=== PATIENT | female | born 1930 | race Caucasian/White ===

== ENCOUNTER 2018-10-21 11:02 | Emergency (ER) | payer MEDICARE, BC ==
[2018-10-21 11:22] VITALS: BP 142/82
--- NOTE | 2018-10-21 11:25 | EDM.PDOC ---
ED HPI GENERAL MEDICAL PROBLEM - General Chief Complaint: Syncope Stated Complaint: VIA [facility]TH Time Seen by Provider: 10/21/18 11:13 Source of Information: Reports: Patient, EMS, Old Records, RN History Limitations: Reports: No Limitations - History of Present Illness INITIAL COMMENTS - FREE TEXT/NARRATIVE: 88 yo female presents from her home after a syncopal spell. Has had recurrent episodes of this, EMS mentions this is #4. Vital signs were normal as was her EKG en route. BS was 155 at the scene. She recalls nothing from the episode except that she was sitting on the toilet when she passed out this time. Recalls no pain. Is not sure if she was attempting to pass stool or urine. Doesn't think she's eaten yet today. No black or bloody stools. No vomiting or diarrhea. Lives in an upstairs apartment alone, son and his family live just below her. Son found her slumped over and attempted CPR when he could not palpate a pulse( he is not trained in this area). Denies chest wall pain after her reported CPR per son. Onset: Today Onset Date: 10/21/18 Onset Time: 10:25 Duration: Minutes:, Resolved Prior to Arrival Location: Reports: Generalized Quality: Reports: Other (no pain) Severity: Moderate Improves with: Reports: Other (time) Worsens with: Reports: Other (unknown) Context: Reports: Other (See HPI) Associated Symptoms: Reports: Syncope. 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: Other (see below) (none) - Related Data Allergies Allergy/AdvReac Type Severity Reaction Status Date / Time hydrocodone bitartrate AdvReac Confusion Verified 01/18/16 08:55 [From [place]] Home Meds: Home Meds *Relafen 1 tab PO BID 01/15/16 [History] Zolpidem Tartrate 10 mg PO BEDTIME PRN 01/15/16 [History] buPROPion HCl [Wellbutrin SR] 200 mg PO BID 01/15/16 [History] Acetaminophen [Tylenol] 650 mg PO ASDIRECTED 01/17/16 [History] Mupirocin Oint [Bactroban Oint] 1 applic TOP TID 10/21/18 [History] Rivastigmine [Exelon] 9.5 mg TRDERM DAILY 10/21/18 [History] Past Medical History HEENT History: Reports: Cataract, Impaired Vision, Other (See Below) Other HEENT History: eye pressure problem DIRECTOR [employer] DAT[employer]ASE History: Reports: Musculoskeletal History: Reports: Osteoarthritis Neurological History: Reports: Other (See Below) Other Neuro History: global amnesia, 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 about 2 years ago Psychiatric History: Reports: Depression - Infectious Disease History Infectious Disease History: Reports: Chicken Pox, Shingles - Past Surgical History Musculoskeletal Surgical History: Reports: Knee Replacement, Other (See Below) Social & Family History - Tobacco Use Smoking Status *Q: Never Smoker - Caffeine Use Caffeine Use: Reports: Coffee - Recreational Drug Use Recreational Drug Use: No ED ROS GENERAL - Review of Systems Review Of Systems: See Below Constitutional: Reports: No Symptoms HEENT: Reports: No Symptoms Respiratory: Reports: No Symptoms Cardiovascular: Reports: Syncope Endocrine: Reports: No Symptoms GI/Abdominal: Reports: No Symptoms : Reports: No Symptoms Musculoskeletal: Reports: No Symptoms Skin: Reports: No Symptoms Neurological: Reports: Syncope Psychiatric: Reports: No Symptoms - Physical Exam Exam: See Below Exam Limited By: No Limitations General Appearance: Alert, WD/WN, No Apparent Distress Eye Exam: Bilateral Eye: EOMI, Normal Inspection, PERRL Ears: Normal External Exam, Normal Canal, Hearing Grossly Normal, Normal TMs Nose: Normal Inspection, Normal Mucosa, No Blood Throat/Mouth: Normal Inspection, Normal Lips, Normal Oropharynx, Normal Voice, No Airway Compromise Head Exam: Atraumatic, Normocephalic Neck: Normal Inspection Respiratory/Chest: No Respiratory Distress, Lungs Clear, Normal Breath Sounds, No Accessory Muscle Use Cardiovascular: Regular Rate, Rhythm, No Edema GI/Abdominal: Normal Bowel Sounds, Soft, Non-Tender, No Distention Neuro Exam (Abbreviated): Alert, Oriented, CN II-XII Intact, Normal Cognition, No Motor/Sensory Deficits Back Exam: Normal Inspection. No: CVA Tenderness (R), CVA Tenderness (L) Extremities: Normal Inspection, Normal Range of Motion, Non-Tender, No Pedal Edema Psychiatric: Normal Affect, Normal Mood Skin Exam: Warm, Dry, Intact, Normal Color, No Rash Course - Vital Signs Last Recorded V/S: Last Vital Signs Temp 36.6 C 10/21/18 11:08 Pulse 81 10/21/18 11:08 Resp 16 10/21/18 11:08 BP 142/82 H 10/21/18 11:08 Pulse Ox 98 10/21/18 11:08 Orthostatic Blood Pressure [ 138/78 Standing] Orthostatic Blood Pressure [ 147/73 Sitting] Orthostatic Blood Pressure [ 136/71 Supine] - Orders/Labs/Meds Orders: Active Orders 24 hr Category Date Time Status Cardiac Monitoring [RC] .As Directed Care 10/21/18 11:04 Active Orthostatic Vital Signs [RC] ASDIRECTED Care 10/21/18 11:05 Active Labs: Laboratory Tests 10/21/18 10/21/18 10/21/18 Range/Units 11:15 11:15 12:57 WBC 4.9 (4.5-11.0) K/uL RBC 4.79 (3.30-5.50) M/uL Hgb 14.1 D (12.0-15.0) g/dL Hct 44.4 (36.0-48.0) % MCV 93 (80-98) fL MCH 29 (27-31) pg MCHC 32 (32-36) % Plt Count 303 (150-400) K/uL Sodium 139 L (140-148) mmol/L Potassium 4.7 (3.6-5.2) mmol/L Chloride 102 (100-108) mmol/L Carbon Dioxide 28 (21-32) mmol/L Anion Gap 13.7 (5.0-14.0) mmol/L BUN 14 D (7-18) mg/dL Creatinine 1.3 H D (0.6-1.0) mg/dL Est Cr Clr Drug Dosing 24.57 mL/min Estimated GFR (MDRD) 39 L (>60) Glucose 134 H (74-106) mg/dL Calcium 9.2 D (8.5-10.1) mg/dL Troponin I < 0.017 (0.000-0.056) ng/mL Urine Color Yellow Urine Appearance Cloudy Urine pH 7.0 (4.5-8.0) Ur Specific [place] 1.010 (1.008-1.030) Urine Protein Negative (NEGATIVE) mg/dL Urine Glucose (UA) Normal (NEGATIVE) mg/dL Urine Ketones Negative (NEGATIVE) mg/dL Urine Occult Blood Trace (NEGATIVE) Urine Nitrite Negative (NEGATIVE) Urine Bilirubin Negative (NEGATIVE) Urine Urobilinogen Normal (NORMAL) mg/dL Ur Leukocyte Esterase Negative (NEGATIVE) Urine RBC 0-5 (0-5) Urine WBC Not seen (0-5) Ur Epithelial Cells Not seen Amorphous Sediment Many Urine Bacteria Not seen Urine Mucus Not seen Departure - Departure Time of Disposition: 13:25 Disposition: Home, Self-Care 01 Condition: Fair Clinical Impression: Syncope Qualifiers: Syncope type: unspecified Qualified Code(s): R55 - Syncope and collapse - Discharge Information *PRESCRIPTION DRUG MONITORING PROGRAM REVIEWED*: No *COPY OF PRESCRIPTION DRUG MONITORING REPORT IN PATIENT CHARLIE: No Instructions: Syncope, [id number] Referrals: PCP,None [Primary Care Provider] - Forms: ED Department Discharge Additional Instructions: Wear your Holter monitor for 48 hrs and turn in for testing. F/U with your primary care provider. Continue all your current medications. Return as needed. - My Orders Last 24 Hours: My Active Orders 10/21/18 11:04 Cardiac Monitoring [RC] .As Directed 10/21/18 11:05 Orthostatic Vital Signs [RC] ASDIRECTED - Assessment/Plan Last 24 Hours: My Active Orders 10/21/18 11:04 Cardiac Monitoring [RC] .As Directed 10/21/18 11:05 Orthostatic Vital Signs [RC] ASDIRECTED
[2018-10-21] MEDS ORDERED: Acetaminophen 325 MG Tab PO ONE (13:24)
--- NOTE | 2018-10-21 14:22 | CRLCT ---
INDICATION: Headaches and syncope. TECHNIQUE: CT of the head without contrast. Bone and soft tissue windows. COMPARISON: No prior studies available for comparison at this institution. FINDINGS: No acute intracranial hemorrhage or extra-axial collection. No evidence of acute cortical infarction. No mass effect or midline shift. Moderate generalized cerebral/cerebellar parenchymal volume loss. 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 Moderate regions of decreased attenuation within the periventricular and subcortical white matter of both cerebral hemispheres most likely reflects chronic microvascular ischemic disease and age related change in this patient. Vascular calcifications within the carotid siphons. Orbital contents are normal. Paranasal sinuses are unremarkable. Mastoid air cells are clear. No calvarial fractures. No lytic or sclerotic osseous lesions within the calvarium or skull base. Scalp and other imaged soft tissue structures are normal. IMPRESSION: 1. No acute intracranial abnormality. 2. Results called to Dr. Waters at 2:19 pm. Please note that all CT scans at this facility use dose modulation, iterative reconstruction, and/or weight-based dosing when appropriate to reduce radiation dose to as low as reasonably achievable. Dictated by Michael Patel MD @ Oct 21 2018 2:16PM Signed by Dr. Michael Patel @ Oct 21 2018 2:20PM
== END 2018-10-21 15:25 | disposition home or self-care (01) ==
LOC: JP.ED 11:02
DX: R55 Syncope and collapse (principal); Z88.5 Allergy status to narcotic agent; Z79.899 Other long term (current) drug therapy
CPT/HCPCS: 36415; 70450; 80048; 81001; 84484; 85027; 99284; A9270

== ENCOUNTER 2019-05-01 20:55 | Emergency (ER) | payer MEDICARE, BC ==
--- NOTE | 2019-05-01 21:29 | EDM.PDOC ---
ED HPI GENERAL MEDICAL PROBLEM - General Chief Complaint: Syncope Stated Complaint: MEDICAL VIA [facility] Time Seen by Provider: 05/01/19 21:15 Source of Information: Reports: Patient, EMS, Family, Old Records History Limitations: Reports: No Limitations - History of Present Illness INITIAL COMMENTS - FREE TEXT/NARRATIVE: 89 yo female was eating at a restaurant and had a brief syncopal spell. Does not recall any SOB or chest pain. EMS administered 500 ml of IV fluids en route for low BP. Denies any recent vomiting, diarrhea or black/bloody stools. Is not on any meds for HTN. Feels fine now in the ER. Recently had a Holter for this problem. Has been seen multiple times for this same problem. Onset: Today, Sudden Onset Date: 05/01/19 Onset Time: 20:15 Duration: Minutes:, Other (a couple minutes) Location: Reports: Generalized Quality: Reports: Other (no pain) Severity: Moderate Improves with: Reports: Other (lying down, IV fluids) Worsens with: Reports: Other (vertical posture) Context: Reports: Other (see HPI) Associated Symptoms: Reports: Syncope Treatments ASSEMBLER MOVEMENT: Reports: IV/IO - Related Data Allergies Allergy/AdvReac Type Severity Reaction Status Date / Time hydrocodone bitartrate AdvReac Confusion Verified 01/18/16 08:55 [From [place]] Home Meds: Home Meds *Relafen 1 tab PO BID 01/15/16 [History] Zolpidem Tartrate 10 mg PO BEDTIME PRN 01/15/16 [History] buPROPion HCl [Wellbutrin SR] 200 mg PO BID 01/15/16 [History] Acetaminophen [Tylenol] 650 mg PO ASDIRECTED 01/17/16 [History] Rivastigmine [Exelon] 9.5 mg TRDERM DAILY 10/21/18 [History] Cephalexin [Keflex] 500 mg PO TID #14 capsule 05/01/19 [Rx] Past Medical History HEENT History: Reports: Cataract, Impaired Vision, Other (See Below) Other HEENT History: eye pressure problem Cardiovascular History: Reports: Syncope 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: Musculoskeletal History: Reports: Osteoarthritis Neurological History: Reports: Other (See Below) Other Neuro History: global amnesia, 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 about 2 years ago Psychiatric History: Reports: Depression - Infectious Disease History Infectious Disease History: Reports: Chicken Pox, Shingles - Past Surgical History Musculoskeletal Surgical History: Reports: Knee Replacement, Other (See Below) Other Musculoskeletal Surgeries/Procedures:: bilateral knees and hand reconstruction Social & Family History - Caffeine Use Caffeine Use: Reports: Coffee ED ROS GENERAL - Review of Systems Review Of Systems: See Below Constitutional: Reports: No Symptoms HEENT: Reports: No Symptoms Respiratory: Reports: No Symptoms Cardiovascular: Reports: Syncope Endocrine: Reports: No Symptoms GI/Abdominal: Reports: No Symptoms : Reports: No Symptoms Musculoskeletal: Reports: No Symptoms Skin: Reports: No Symptoms Neurological: Reports: Syncope Psychiatric: Reports: No Symptoms - Physical Exam Exam: See Below Exam Limited By: No Limitations General Appearance: Alert, WD/WN, No Apparent Distress Eye Exam: Right Eye: Proptosis, Bilateral Eye: Normal Inspection, PERRL Ears: Normal External Exam, Normal Canal, Hearing Grossly Normal, Normal TMs Nose: Normal Inspection, No Blood Throat/Mouth: Normal Inspection, Normal Lips, Normal Oropharynx, Normal Voice, No Airway Compromise Head Exam: Atraumatic, Normocephalic Neck: Normal Inspection Respiratory/Chest: No Respiratory Distress, No Accessory Muscle Use, Rhonchi ( diffusely, R > L) Cardiovascular: Regular Rate, Rhythm, No Edema GI/Abdominal: Normal Bowel Sounds, Soft, Non-Tender, No Distention Neuro Exam (Abbreviated): Alert, Oriented, CN II-XII Intact, Normal Cognition, No Motor/Sensory Deficits Back Exam: Normal Inspection Extremities: Normal Inspection, Normal Range of Motion, Non-Tender, No Pedal Edema Psychiatric: Normal Affect, Normal Mood Skin Exam: Warm, Dry, Intact, Normal Color, No Rash Course - Vital Signs Last Recorded V/S: Last Vital Signs Temp 35.8 C 05/01/19 21:22 Pulse 80 05/01/19 21:22 Resp 12 05/01/19 21:22 BP 162/86 H 05/01/19 21:22 Pulse Ox 98 05/01/19 21:22 Orthostatic Blood Pressure [ 143/89 Standing] Orthostatic Blood Pressure [ 153/83 Sitting] Orthostatic Blood Pressure [ 162/86 Supine] - Orders/Labs/Meds Orders: Active Orders 24 hr Category Date Time Status Cardiac Monitoring [RC] .As Directed Care 05/01/19 21:24 Active Orthostatic Vital Signs [RC] ASDIRECTED Care 05/01/19 21:23 Active CULTURE URINE [RM] Stat Lab 05/01/19 22:32 Ordered Labs: Laboratory Tests 05/01/19 05/01/19 05/01/19 Range/Units 21:23 21:45 22:10 WBC 5.0 (4.5-11.0) K/uL RBC 4.30 (3.30-5.50) M/uL Hgb 13.1 (12.0-15.0) g/dL Hct 40.2 (36.0-48.0) % MCV 94 (80-98) fL MCH 31 (27-31) pg MCHC 33 (32-36) % Plt Count 298 (150-400) K/uL Sodium 142 (140-148) mmol/L Potassium 3.9 (3.6-5.2) mmol/L Chloride 104 (100-108) mmol/L Carbon Dioxide 27 (21-32) mmol/L Anion Gap 10.7 (5.0-14.0) mmol/L BUN 19 H (7-18) mg/dL Creatinine 1.2 H (0.6-1.0) mg/dL Est Cr Clr Drug Dosing 24.92 mL/min Estimated GFR (MDRD) 42 L (>60) Glucose 109 H (74-106) mg/dL Calcium 8.4 L (8.5-10.1) mg/dL Troponin I < 0.017 (0.000-0.056) ng/mL Urine Color Yellow (YELLOW) Urine Appearance Slightly cloudy A (CLEAR) Urine pH 7.0 (5.0-8.0) Ur Specific [place] 1.020 (1.008-1.030) Urine Protein Negative (NEGATIVE) mg/dL Urine Glucose (UA) Negative (NEGATIVE) mg/dL Urine Ketones Negative (NEGATIVE) mg/dL Urine Occult Blood Negative (NEGATIVE) Urine Nitrite Negative (NEGATIVE) Urine Bilirubin Negative (NEGATIVE) Urine Urobilinogen 0.2 (0.2-1.0) EU/dL Ur Leukocyte Esterase Moderate H (NEGATIVE) Urine RBC 0-5 (0-5) Urine WBC 20-30 H (0-5) Ur Epithelial Cells Few Amorphous Sediment Few Urine Bacteria Few Urine Mucus Not seen Meds: Medications Discontinued Medications Generic Name Dose Route Start Last Admin Trade Name Freq PRN Reason Stop Dose Admin Cephalexin 500 mg 05/01/19 22:33 Keflex PO 05/01/19 22:34 ONETIME ONE Departure - Departure Time of Disposition: 22:40 Disposition: Home, Self-Care 01 Condition: Fair Clinical Impression: Cystitis Syncope Qualifiers: Syncope type: unspecified Qualified Code(s): R55 - Syncope and collapse - Discharge Information *PRESCRIPTION DRUG MONITORING PROGRAM REVIEWED*: No *COPY OF PRESCRIPTION DRUG MONITORING REPORT IN PATIENT CHARLIE: No Prescriptions: Cephalexin [Keflex] 500 mg PO TID #14 capsule Referrals: Michael Mosley MD [Primary Care Provider] - Forms: ED Department Discharge Additional Instructions: Continue your usual medications. Add cephalexin every 8 hrs for your urinary tract infection. Drink enough water so that your urine is light yellow and never dark yellow. Recheck in the clinic with your doctor on Sunday, return here in the interim as needed. - My Orders Last 24 Hours: My Active Orders 05/01/19 21:23 Orthostatic Vital Signs [RC] ASDIRECTED 05/01/19 21:24 Cardiac Monitoring [RC] .As Directed 05/01/19 22:32 CULTURE URINE [RM] Stat - Assessment/Plan Last 24 Hours: My Active Orders 05/01/19 21:23 Orthostatic Vital Signs [RC] ASDIRECTED 05/01/19 21:24 Cardiac Monitoring [RC] .As Directed 05/01/19 22:32 CULTURE URINE [RM] Stat
[2019-05-01] MEDS ORDERED: Cephalexin 250 MG Cap PO ONE (22:33)
[2019-05-01 22:43] VITALS: BP 126/64; PULSE 74
== END 2019-05-01 22:57 | disposition home or self-care (01) ==
LOC: JP.ED 20:55
DX: R55 Syncope and collapse (principal); N30.90 Cystitis, unspecified without hematuria; F32.9 Major depressive disorder, single episode, unspecified; M19.90 Unspecified osteoarthritis, unspecified site; Z88.5 Allergy status to narcotic agent; Z79.899 Other long term (current) drug therapy
CPT/HCPCS: 36415; 80048; 81001; 84484; 85027; 87086; 87088; 99283; 99284; A9270-GY

== ENCOUNTER 2019-06-26 19:38 | Emergency (ER) | payer MEDICARE, BC ==
--- NOTE | 2019-06-26 20:25 | EDM.PDOC ---
ED HPI GENERAL MEDICAL PROBLEM - General Chief Complaint: Syncope Stated Complaint: MEDICAL Time Seen by Provider: 06/26/19 20:02 Source of Information: Reports: Patient, Family, Old Records, RN Notes Reviewed History Limitations: Reports: No Limitations - History of Present Illness INITIAL COMMENTS - FREE TEXT/NARRATIVE: 89-year-old female presents emergency department today via EMS services for syncopal event at home. She does have history of syncopal events has had an evaluation with a Holter monitor without any diagnosis. Was in the emergency department approximately 2 months prior same event thought to be related to urinary tract infection. 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: IV/IO denies pain Pain Score (Numeric/FACES): 0 - Related Data Allergies Allergy/AdvReac Type Severity Reaction Status Date / Time hydrocodone bitartrate AdvReac Confusion Verified 06/26/19 20:23 [From [place]] Home Meds: Home Meds *Relafen 1 tab PO BID 01/15/16 [History] Zolpidem Tartrate 10 mg PO BEDTIME PRN 01/15/16 [History] buPROPion HCl [Wellbutrin SR] 200 mg PO BID 01/15/16 [History] Acetaminophen [Tylenol] 650 mg PO ASDIRECTED 01/17/16 [History] Rivastigmine [Exelon] 9.5 mg TRDERM DAILY 10/21/18 [History] Past Medical History HEENT History: Reports: Cataract, Impaired Vision, Other (See Below) Other HEENT History: eye pressure problem Cardiovascular History: Reports: Syncope TIRE SPOTTER History: Reports: Musculoskeletal History: Reports: Osteoarthritis Neurological History: Reports: Other (See Below) Other Neuro History: global amnesia, 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 about 2 years ago Psychiatric History: Reports: Depression - Infectious Disease History Infectious Disease History: Reports: Chicken Pox, Shingles - Past Surgical History Musculoskeletal Surgical History: Reports: Knee Replacement, Other (See Below) Other Musculoskeletal Surgeries/Procedures:: bilateral knees and hand reconstruction Social & Family History - Caffeine Use Caffeine Use: Reports: Coffee ED ROS GENERAL - Review of Systems Review Of Systems: See Below Constitutional: Reports: No Symptoms HEENT: Reports: No Symptoms Respiratory: Reports: No Symptoms Cardiovascular: Reports: Syncope GI/Abdominal: Reports: No Symptoms : Reports: No Symptoms ED EXAM, GENERAL - Physical Exam Exam: See Below Exam Limited By: No Limitations General Appearance: Alert, WD/WN, No Apparent Distress Eye Exam: Bilateral Eye: Normal Inspection Respiratory/Chest: No Respiratory Distress, Lungs Clear, Normal Breath Sounds, No Accessory Muscle Use, Chest Non-Tender Cardiovascular: Regular Rate, Rhythm, No Murmur GI/Abdominal: Soft, Non-Tender Course - Vital Signs Last Recorded V/S: Last Vital Signs Temp 96.4 F 06/26/19 19:44 Pulse 64 06/26/19 19:44 Resp 14 06/26/19 19:44 BP 134/67 06/26/19 19:44 Pulse Ox 97 06/26/19 19:44 Orthostatic Blood Pressure [ 138/73 Standing] Orthostatic Blood Pressure [ 147/67 Sitting] Orthostatic Blood Pressure [ 154/68 Supine] - Orders/Labs/Meds Orders: Active Orders 24 hr Category Date Time Status CULTURE URINE [RM] Urgent Lab 06/26/19 21:14 Ordered Labs: Laboratory Tests 06/26/19 Range/Units 20:55 Urine Color Yellow (YELLOW) Urine Appearance Clear (CLEAR) Urine pH 7.0 (5.0-8.0) Ur Specific [place] 1.020 (1.008-1.030) Urine Protein Negative (NEGATIVE) mg/dL Urine Glucose (UA) Negative (NEGATIVE) mg/dL Urine Ketones Negative (NEGATIVE) mg/dL Urine Occult Blood Negative (NEGATIVE) Urine Nitrite Negative (NEGATIVE) Urine Bilirubin Negative (NEGATIVE) Urine Urobilinogen 0.2 (0.2-1.0) EU/dL Ur Leukocyte Esterase Trace H (NEGATIVE) Urine RBC 0-5 (0-5) Urine WBC 5-10 H (0-5) Ur Epithelial Cells Many Amorphous Sediment Not seen Urine Bacteria Moderate Urine Mucus Rare Departure - Departure Time of Disposition: 21:19 Disposition: Home, Self-Care 01 Condition: Fair Clinical Impression: Syncope Qualifiers: Syncope type: unspecified Qualified Code(s): R55 - Syncope and collapse Referrals: Michael Mosley MD [Primary Care Provider] - Forms: ED Department Discharge Additional Instructions: Continue with regular medications, please follow-up with your primary care provider for further evaluation, call or return to the emergency department for worsening of symptoms - My Orders Last 24 Hours: My Active Orders 06/26/19 21:14 CULTURE URINE [RM] Urgent - Assessment/Plan Last 24 Hours: My Active Orders 06/26/19 21:14 CULTURE URINE [RM] Urgent Plan: Assessment Acuity = acute Site and laterality = syncopal event Etiology = unknown Manifestations = none Location of injury = Home Lab values = urinalysis unremarkable cultures pending Plan I did discuss options with them including further evaluation which they declined there to follow-up with primary care for further evaluation, this is multiple syncopal events talked about the possibility of an implantable device for cardiac activity one family member is still concerned about seizure activity and I recommended follow-up with primary care for further evaluation This note was dictated using [employer] voice recognition software please call with any questions on syntax or grammar.
[2019-06-26 21:32] VITALS: BP 158/83; PULSE 82
== END 2019-06-26 21:32 | disposition home or self-care (01) ==
LOC: JP.ED 19:38
DX: R55 Syncope and collapse (principal); F32.9 Major depressive disorder, single episode, unspecified; M19.90 Unspecified osteoarthritis, unspecified site; Z88.8 Allergy status to other drugs, medicaments and biological substances; Z79.899 Other long term (current) drug therapy
CPT/HCPCS: 81001; 87086; 99283; 99284

== ENCOUNTER 2020-04-10 13:06 | Emergency (ER) | payer BC, MEDICARE ==
--- NOTE | 2020-04-10 13:33 | CRLCT ---
INDICATION: Left-sided weakness. TECHNIQUE: Noncontrast CT images were obtained through the brain. COMPARISON: CT brain 10/21/2018. FINDINGS: Prominence of ventricles and sulci compatible mild to moderate diffuse cerebral volume loss. No mass effect or midline shift. The campbell-white differentiation is maintained. Confluent hypoattenuation within the supratentorial white matter, suggestive of advanced chronic microvascular ischemic changes. Chronic lacunar infarction right cerebellum. No acute intracranial hemorrhage or pathologic extra-axial fluid collection. Intracranial atherosclerotic calcifications. The calvarium is intact. The visualized paranasal sinuses and mastoid air cells are clear. IMPRESSION: 1. No acute intracranial hemorrhage or mass effect. No significant change compared to the CT dated 10/21/2018. 2. Suggested advanced chronic microvascular ischemic changes. 3. [id number] diffuse cerebral volume loss. Please note that all CT scans at this facility use dose modulation, iterative reconstruction, and/or weight-based dosing when appropriate to reduce radiation dose to as low as reasonably achievable. Dictated by Fuad Bobby MD @ Apr 10 2020 1:28PM Signed by Dr. Fuad Bobby @ Apr 10 2020 1:33PM
--- NOTE | 2020-04-10 13:42 | EDM.PDOC ---
ED HPI GENERAL MEDICAL PROBLEM - General Chief Complaint: Neuro Symptoms/Deficits Stated Complaint: MEDICAL VIA [facility] Time Seen by Provider: 04/10/20 13:25 Source of Information: Reports: Patient, EMS, Family History Limitations: Reports: No Limitations - History of Present Illness INITIAL COMMENTS - FREE TEXT/NARRATIVE: 89-year-old female with sudden left-sided weakness, dysarthria and anxiety which started suddenly just over 1 hour ago. She has no history of CVA in the past. She says she "hurts all over". No nausea or vomiting, no visual complaints. Onset: Sudden Duration: Hour(s): (Just under 1-1/2 hours ago) Location: Reports: Other (Left-sided weakness) Associated Symptoms: Reports: No Other Symptoms - Related Data Allergies Allergy/AdvReac Type Severity Reaction Status Date / Time doxepin [From Silenor] Allergy Delusions Verified 04/10/20 13:41 hydrocodone Allergy Confusion Verified 04/10/20 13:41 donepezil AdvReac Vomiting Verified 04/10/20 13:56 hydrocodone bitartrate AdvReac Confusion Verified 06/26/19 20:23 [From Perry] Home Meds: Home Meds Zolpidem Tartrate 10 mg PO BEDTIME PRN 01/15/16 [History] buPROPion HCL [Wellbutrin SR] 200 mg PO BID 01/15/16 [History] Acetaminophen [Tylenol] 650 mg PO ASDIRECTED 01/17/16 [History] Rivastigmine [Exelon] 9.5 mg TRDERM DAILY 10/21/18 [History] Mupirocin Oint [Bactroban Oint] 1 appful TOP TID 07/16/19 [History] Nabumetone [Relafen] 1 tab PO BID 07/16/19 [History] Past Medical History HEENT History: Reports: Cataract, Impaired Vision, Other (See Below) Other HEENT History: eye pressure problem Cardiovascular History: Reports: Syncope [employer] History: Reports: Musculoskeletal History: Reports: Osteoarthritis Neurological History: Reports: Other (See Below) Other Neuro History: global amnesia, 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 about 2 years ago Psychiatric History: Reports: Depression - Infectious Disease History Infectious Disease History: Reports: Chicken Pox, Shingles - Past Surgical History Musculoskeletal Surgical History: Reports: Knee Replacement, Other (See Below) Other Musculoskeletal Surgeries/Procedures:: bilateral knees and hand reconstruction Social & Family History - Caffeine Use Caffeine Use: Reports: Coffee ED ROS GENERAL - Review of Systems Review Of Systems: See Below Constitutional: Denies: Fever, Chills Respiratory: Denies: Shortness of Breath Cardiovascular: Denies: Chest Pain GI/Abdominal: Reports: Nausea. Denies: Abdominal Pain, Vomiting Skin: Reports: No Symptoms Neurological: Reports: Other (History of dementia). Denies: Headache Psychiatric: Reports: Anxiety ED EXAM, NEURO - Physical Exam Exam: See Below Exam Limited By: Physical Impairment General Appearance: Alert, Anxious Eye Exam: Bilateral Eye: EOMI (Patient's eyes are tracking equally but she has difficulty following directions and seems to gaze to the right initially) Head Exam: Atraumatic Neck: Supple, Non-Tender Respiratory/Chest: Lungs Clear Cardiovascular: Regular Rate, Rhythm Neurological: Alert, Oriented x 3, Other (Marked weakness of the left lower extremity, left upper extremity, and slight weakness of the left facial muscles) Extremities: No: Pedal Edema Psychiatric: Anxious Skin Exam: Warm, Dry Course - Vital Signs Last Recorded V/S: Last Vital Signs Temp 96.6 F L 04/10/20 14:24 Pulse 101 H 04/10/20 14:24 Resp 46 H 04/10/20 14:24 BP 220/125 H 04/10/20 14:24 Pulse Ox 99 04/10/20 14:24 - Orders/Labs/Meds Labs: Laboratory Tests 04/10/20 04/10/20 04/10/20 Range/Units 13:41 13:51 13:51 WBC 6.5 (4.5-11.0) K/uL RBC 4.76 (3.30-5.50) M/uL Hgb 14.2 (12.0-15.0) g/dL Hct 43.4 (36.0-48.0) % MCV 91 (80-98) fL MCH 30 (27-31) pg MCHC 33 (32-36) % Plt Count 500 H (150-400) K/uL Neut % (Auto) 52 (36-66) % Lymph % (Auto) 35 (24-44) % [place] % (Auto) 12 H (2-6) % Eos % (Auto) 1 L (2-4) % Baso % (Auto) 1 (0-1) % PT 10.0 (9.5-12.0) sec INR 0.92 (0.80-1.20) Sodium (140-148) mmol/L Potassium (3.6-5.2) mmol/L Chloride (100-108) mmol/L Carbon Dioxide (21-32) mmol/L Anion Gap (5.0-14.0) mmol/L BUN (7-18) mg/dL Creatinine (0.6-1.0) mg/dL Est Cr Clr Drug Dosing mL/min Estimated GFR (MDRD) (>60) Glucose (74-106) mg/dL Calcium (8.5-10.1) mg/dL Total Bilirubin (0.2-1.0) mg/dL AST (15-37) U/L ALT (12-78) U/L Alkaline Phosphatase (46-116) U/L Total Protein (6.4-8.2) g/dL Albumin (3.4-5.0) g/dL Globulin (2.3-3.5) g/dL Albumin/Globulin Ratio (1.2-2.2) Urine Color Yellow (YELLOW) Urine Appearance Clear (CLEAR) Urine pH 7.0 (5.0-8.0) Ur Specific [place] 1.020 (1.008-1.030) Urine Protein Negative (NEGATIVE) mg/dL Urine Glucose (UA) Negative (NEGATIVE) mg/dL Urine Ketones 15 H (NEGATIVE) mg/dL Urine Occult Blood Negative (NEGATIVE) Urine Nitrite Negative (NEGATIVE) Urine Bilirubin Negative (NEGATIVE) Urine Urobilinogen 0.2 (0.2-1.0) EU/dL Ur Leukocyte Esterase Negative (NEGATIVE) Urine RBC Not seen (0-5) Urine WBC 0-5 (0-5) Ur Epithelial Cells Not seen Urine Bacteria Not seen 04/10/20 Range/Units 13:51 WBC (4.5-11.0) K/uL RBC (3.30-5.50) M/uL Hgb (12.0-15.0) g/dL Hct (36.0-48.0) % MCV (80-98) fL MCH (27-31) pg MCHC (32-36) % Plt Count (150-400) K/uL Neut % (Auto) (36-66) % Lymph % (Auto) (24-44) % [place] % (Auto) (2-6) % Eos % (Auto) (2-4) % Baso % (Auto) (0-1) % PT (9.5-12.0) sec INR (0.80-1.20) Sodium 134 L (140-148) mmol/L Potassium 3.9 (3.6-5.2) mmol/L Chloride 97 L (100-108) mmol/L Carbon Dioxide 21 (21-32) mmol/L Anion Gap 19.9 H (5.0-14.0) mmol/L BUN 17 (7-18) mg/dL Creatinine 1.1 H (0.6-1.0) mg/dL Est Cr Clr Drug Dosing 25.88 mL/min Estimated GFR (MDRD) 47 L (>60) Glucose 123 H (74-106) mg/dL Calcium 9.2 (8.5-10.1) mg/dL Total Bilirubin 0.4 (0.2-1.0) mg/dL AST 29 (15-37) U/L ALT 34 (12-78) U/L Alkaline Phosphatase 102 (46-116) U/L Total Protein 7.3 (6.4-8.2) g/dL Albumin 3.3 L (3.4-5.0) g/dL Globulin 4.0 H (2.3-3.5) g/dL Albumin/Globulin Ratio 0.8 L (1.2-2.2) Urine Color (YELLOW) Urine Appearance (CLEAR) Urine pH (5.0-8.0) Ur Specific [place] (1.008-1.030) Urine Protein (NEGATIVE) mg/dL Urine Glucose (UA) (NEGATIVE) mg/dL Urine Ketones (NEGATIVE) mg/dL Urine Occult Blood (NEGATIVE) Urine Nitrite (NEGATIVE) Urine Bilirubin (NEGATIVE) Urine Urobilinogen (0.2-1.0) EU/dL Ur Leukocyte Esterase (NEGATIVE) Urine RBC (0-5) Urine WBC (0-5) Ur Epithelial Cells Urine Bacteria Meds: Medications Discontinued Medications Generic Name Dose Route Start Last Admin Trade Name Freq PRN Reason Stop Dose Admin Alteplase, Recombinant 4.5 mg 04/10/20 13:50 04/10/20 14:32 Activase IVPUSH 04/10/20 13:51 4.5 mg ONETIME ONE Administration Hydromorphone HCl Confirm 04/10/20 13:45 Dilaudid Administered 04/10/20 13:46 Dose 0.5 mg .ROUTE .STK-MED ONE Hydromorphone HCl 0.25 mg 04/10/20 14:32 04/10/20 14:38 Dilaudid IVPUSH 04/10/20 14:33 0.25 mg ONETIME ONE Administration Alteplase, Recombinant 40.5 mg 40.5 mls @ 40.5 mls/hr 04/10/20 14:00 04/10/20 14:32 / Premix IV 04/10/20 14:59 40.5 mls/hr ONETIME ONE Administration - Re-Assessments/Exams Free Text/Narrative Re-Assessment/Exam: 04/10/20 13:[address] was negative. During the first 20 minutes while in the emergency room she had slight increase coordination of the left arm and slightly less weakness of the left face. Her condition was discussed with the stroke team at [facility], Dr. Faye, and he recommended TPA if no contraindications which they were not. CBC, CMP, UA were obtained and the patient was given 0.5 mg of IV Dilaudid. INR also drawn. TPA was drawn up and initiated at 0.9/kg per protocol after discussing risks and benefits with the patient and her family. BP prior to TPA 182/101 They wanted to proceed. Urgent transportation was arranged to [facility]. Departure - Departure Time of Disposition: 14:40 Disposition: DC/Tfer to Other Clinical Impression: Acute CVA (cerebrovascular accident) - Discharge Information Referrals: Michael Mosley MD [Primary Care Provider] - Forms: ED Department Discharge Care Plan Goals: Patient was urgently transferred by air to [facility] per their care for a interventional neurology consultation and treatment for presumed ischemic cerebral infarct. Pressure on discharge was less than 185/110, patient was slowly improving, initial TPA dose given and drip initiated. Sepsis Event Note (ED) - Focused Exam Vital Signs: Vital Signs Temp Pulse Resp BP Pulse Ox 04/10/20 14:24 96.6 F L 101 H 46 H 220/125 H 99 04/10/20 13:30 78 14 196/83 H 97 04/10/20 13:19 71 15 166/80 H 97 04/10/20 13:09 196/88 H
[2020-04-10] MEDS ORDERED: HYDROmorphone 0.5 MG/0.5 ML Syringe ONE (13:45)
[2020-04-10 13:51] VITALS: BP 220/125; PULSE 101
[2020-04-10] MEDS ORDERED: ALTEPLASE IV ONE (14:00)
[2020-04-10] MEDS ORDERED: HYDROmorphone 0.5 MG/0.5 ML Syringe IVPUSH ONE (14:32)
== END 2020-04-10 14:41 | disposition other institution (70) ==
LOC: JP.ED 13:06
DX: I63.9 Cerebral infarction, unspecified (principal); F32.9 Major depressive disorder, single episode, unspecified; Z88.1 Allergy status to other antibiotic agents; Z88.5 Allergy status to narcotic agent; Z79.899 Other long term (current) drug therapy
CPT/HCPCS: 36415; 37195; 70450; 80053; 81001; 85025; 85610; 96374; 99285; J1170; J2997